=== PATIENT | male | born 1975 | race Caucasian/White ===

== ENCOUNTER → 2017-12-16 | Outpatient (CLI) | payer OTHER ==
--- NOTE | 2017-12-17 09:20 | RAD ---
Right hand 12/16/2017 5:03 PM INDICATION: Right hand pain, hyperextension of the right hand COMPARISON: None available. TECHNIQUE: 2 views the right hand are provided. FINDINGS: There is no acute fracture or dislocation. Bone mineralization is within normal limits. Joint spaces are maintained. Regional soft tissues are within normal limits. There is no soft tissue gas or osseous erosion. IMPRESSION: No acute fracture or dislocation. Electronically signed by: Tanika Desir MD (12/17/2017 9:18 AM) [facility]
== END | disposition home or self-care (01) ==
LOC: RAD 16:55
PROVIDERS: ATTEND Family Medicine
DX: M79.641 Pain in right hand (principal)
CPT/HCPCS: 73120